=== PATIENT | female | born 2000 | race Caucasian/White ===

== ENCOUNTER 2020-08-03 02:19 | Inpatient (IN) ==
[2020-08-03 03:14] LABS: Bacteria,Urine Occasional /HPF (Few); Bilirubin,Urine Negative (Negative); Blood, Urine Small mg/dL (Negative); Glucose,Urine (UA) Negative (Negative); Ketones,Urine Negative (Negative); Mucus,Urine Occasional /LPF (Occasional); Nitrite,Urine Negative (Negative); Protein,Urine 100 MG/DL; RBC,Urine 2 /HPF (0-4); Squamous Epithelial Cell,Urine Occasional /HPF (0-10); Urine Appearance CLEAR (Clear); Urine Color Yellow (Yellow); Urine Specific Gravity 1.009 (1.001-1.035); Urine Urobilinogen < 2.0 EU/DL (0.2-1.0)
[2020-08-03] MEDS ORDERED: ONDANSETRON 4 MG/2 ML VIAL IV ONE (04:14)
[2020-08-03] MEDS ORDERED: BUTORPHANOL 2 MG/ML VIAL IV ONE (04:14)
[2020-08-03] MEDS ORDERED: BUTORPHANOL 1 MG/ML VIAL ONE (04:15)
[2020-08-03] MEDS: LACTATED RINGERS 1,000 ML IV SCH ×2 (04:26→06:43)
[2020-08-03] MEDS ORDERED: ONDANSETRON 4 MG/2 ML VIAL IV PRN ×2 (07:37→13:40)
[2020-08-03] MEDS ORDERED: SODIUM CHLORIDE 0.9% 1,000 ML IV SCH (07:40)
[2020-08-03] MEDS ORDERED: OXYTOCIN/LR 20 UNIT/1,000 ML BAG IV SCH (08:00)
[2020-08-03] MEDS ORDERED: LACTATED RINGERS 1,000 ML IV SCH (08:00)
[2020-08-03 08:06] LABS: Basophils % 0.4 % (0.0-0.8); Eosinophils % 0.3 % (0.00-10.9); Hematocrit 31.6 VOL% (35.7-47.0); Hemoglobin 9.9 GM/DL (12.0-16.0); Immature Granulocytes % 0.4 %; Immature Granulocytes Absolute 0.04 #; Lymphocytes # 2.5 10*3/uL (1.4-4.0); Lymphocytes % 26.5 % (21.3-54.2); Mean Corpuscular HGB Conc 31.3 GM/DL (32-36); Mean Platelet Volume 9.6 FL (9.6-12.0); Monocytes % 5.5 % (1.7-12.7); Neutrophils % 66.9 % (38.7-73.9); Platelet Count 331 T/CUMM (130-400); Red Blood Count 3.95 MC/CUMM (3.8-5.5); Red Cell Distribution Width 14.3 % (9.3-17.3); White Blood Count 9.3 T/CUMM (4-12)
[2020-08-03] MEDS ORDERED: CITRIC ACID/SODIUM CITRATE 30 ML UDCUP PO ONE (08:32)
[2020-08-03] MEDS ORDERED: LACTATED RINGERS 1,000 ML IV ONE (08:32)
[2020-08-03] MEDS ORDERED: FAMOTIDINE 20 MG/2 ML VIAL IV ONE (08:32)
[2020-08-03] MEDS ORDERED: ePHEDrine 50 MG/ML VIAL IV PRN (08:32)
[2020-08-03] MEDS ORDERED: fentaNYL 2 MCG/ROPIV 0.2% EPID 100 ML EPIDURAL SCH (09:00)
[2020-08-03 10:28] LABS: Bacteria,Urine Occasional /HPF (Few); Bilirubin,Urine Negative (Negative); Blood, Urine Negative (Negative); Glucose,Urine (UA) Negative (Negative); Ketones,Urine Negative (Negative); Mucus,Urine Occasional /LPF (Occasional); Nitrite,Urine Negative (Negative); Protein,Urine 100 MG/DL; RBC,Urine 1 /HPF (0-4); Squamous Epithelial Cell,Urine Occasional /HPF (0-10); Urine Appearance CLEAR (Clear); Urine Color Straw (Yellow); Urine Specific Gravity 1.011 (1.001-1.035); Urine Urobilinogen < 2.0 EU/DL (0.2-1.0)
[2020-08-03] MEDS ORDERED: METHYLERGONOVINE 0.2 MG/1 ML AMP ONE (13:01)
[2020-08-03] MEDS ORDERED: miSOPROStoL 200 MCG TABLET ONE (13:01)
[2020-08-03] MEDS ORDERED: TRANEXAMIC ACID 1,000 MG/10 ML VIAL ONE (13:01)
[2020-08-03] MEDS ORDERED: CARBOPROST TROMETHAMINE 250 MCG/ML AMP IM ONE (13:02)
[2020-08-03] MEDS ORDERED: miSOPROStoL 200 MCG TABLET RECTAL ONE (13:26)
[2020-08-03] MEDS ORDERED: LIDOCAINE 1% 50 ML VIAL ONE (13:28)
[2020-08-03] MEDS ORDERED: OXYTOCIN/LR 20 UNIT/1,000 ML BAG IV ONE (13:40)
[2020-08-03] MEDS ORDERED: LANOLIN 50% CREAM 0.3 OZ TUBE TOP PRN (13:40)
[2020-08-03] MEDS ORDERED: oxyCODONE/ACETAMINOPHEN 5-325 MG TABLET PO PRN (13:40)
[2020-08-03] MEDS ORDERED: BISACODYL 10 MG SUPP RECTAL PRN (13:40)
[2020-08-03] MEDS ORDERED: RHO(D) IMMUNE GLOBULIN 300 MCG SYRINGE IM ONE (13:40)
[2020-08-03] MEDS ORDERED: DIPH/TET/ACEL PERT BOOSTER VACCINE 0.5 ML VIAL IM ONE (13:40)
[2020-08-03] MEDS ORDERED: ACETAMINOPHEN 325 MG TABLET PO PRN (13:40)
[2020-08-03] MEDS ORDERED: MEASLES/MUMPS/RUBELLA VACCINE 0.5 ML VIAL SUBCUT ONE (13:40)
[2020-08-03] MEDS ORDERED: HYDROCORTISONE 2.5% RECTAL CREAM 30 GM TUBE TOP PRN (13:40)
[2020-08-03] MEDS ORDERED: WITCH HAZEL PADS 100/JAR TOP PRN (13:40)
[2020-08-03] MEDS ORDERED: BENZOCAINE 20%/MENTHOL 0.5% SPRAY 56 GM CAN TOP PRN (13:40)
[2020-08-03 13:45] LABS: Cord Arterial Blood HCO3 22.8 MMOL/L
[2020-08-03 13:50] LABS: Cord Venous Blood HCO3 23.7 MMOL/L; Cord Venous Blood PCO2 41.9 MMHG; Cord Venous Blood PO2 23.5 MMHG
[2020-08-03] MEDS: IBUPROFEN 800 MG TABLET PO PRN (15:46)
[2020-08-03] MEDS: DOCUSATE SODIUM 100 MG CAPSULE PO SCH (20:46)
[2020-08-04 06:06] LABS: Basophils % 0.2 % (0.0-0.8); Eosinophils % 0.3 % (0.00-10.9); Hematocrit 24.2 VOL% (35.7-47.0); Hemoglobin 7.4 GM/DL (12.0-16.0); Immature Granulocytes % 0.5 %; Immature Granulocytes Absolute 0.05 #; Lymphocytes # 2.2 10*3/uL (1.4-4.0); Lymphocytes % 19.9 % (21.3-54.2); Mean Corpuscular HGB Conc 30.6 GM/DL (32-36); Mean Corpuscular Volume 80.1 FL (87-102); Mean Platelet Volume 9.5 FL (9.6-12.0); Neutrophils % 72.1 % (38.7-73.9); Platelet Count 286 T/CUMM (130-400); Red Blood Count 3.02 MC/CUMM (3.8-5.5); Red Cell Distribution Width 14.6 % (9.3-17.3)
[2020-08-04] MEDS: IBUPROFEN 800 MG TABLET PO PRN ×3 (06:32→23:25)
[2020-08-04] MEDS: FERROUS SULFATE 325 MG TABLET PO SCH ×2 (09:56→20:38)
[2020-08-04] MEDS: DOCUSATE SODIUM 100 MG CAPSULE PO SCH ×2 (09:56→20:38)
[2020-08-04] MEDS: oxyCODONE/ACETAMINOPHEN 5-325 MG TABLET PO PRN ×3 (10:48→23:25)
[2020-08-05] MEDS: FERROUS SULFATE 325 MG TABLET PO SCH (08:29)
[2020-08-05] MEDS: DOCUSATE SODIUM 100 MG CAPSULE PO SCH (08:29)
[2020-08-05] MEDS: IBUPROFEN 800 MG TABLET PO PRN ×2 (08:29→15:55)
[2020-08-05] MEDS: oxyCODONE/ACETAMINOPHEN 5-325 MG TABLET PO PRN (08:31)
[2020-08-05 09:24] VITALS: BP 134/89
== END 2020-08-05 17:05 | disposition home or self-care (01) | DRG 807 ==
LOC: N.LDOUT 02:19 → N.LD 02:21 → N.OB 16:40
PROVIDERS: ADMIT Obstetrics & Gynecology; ATTEND Obstetrics & Gynecology